=== PATIENT | female | born 1945 | race Caucasian/White ===

== ENCOUNTER → 2019-07-26 | Outpatient (CLI) | payer MEDICARE, OTHER ==
[~2019-07-26] MED LIST: ASPIRIN EC325 M1 PO; CALCIUM500 MG PO; EXCEDRIN CAPLE1 EACH PO; FISH OIL 500 M1 EAC1 PO; NEURONTIN 400M400 M2 PO; PILOCARPINE HCL5 M1 PO; POTASSIUM20 PO; PRILOSEC OTC20 MG PO
== END ==
LOC: M.MRI 15:00
DX: S83.241A Other tear of medial meniscus, current injury, right knee, initial encounter (principal); S83.282A Other tear of lateral meniscus, current injury, left knee, initial encounter; M17.11 Unilateral primary osteoarthritis, right knee; M17.12 Unilateral primary osteoarthritis, left knee; M22.42 Chondromalacia patellae, left knee; X58.XXXA Exposure to other specified factors, initial encounter; Y93.89 Activity, other specified; Y92.89 Other specified places as the place of occurrence of the external cause; Y99.8 Other external cause status

== ENCOUNTER → 2019-08-19 | Outpatient (CLI) | payer MEDICARE, OTHER ==
[~2019-08-19] VITALS: Ht 157.5 cm; Wt 82.1 kg
[2019-08-19 13:50] LABS: ABSOLUTE BASOPHILS 0.1 thou/uL (0.0-0.2); ABSOLUTE EOSINOPHILS 0.2 thou/uL (0.0-0.7); ABSOLUTE LYMPHOCYTES 3.3 thou/uL (0.8-5.3); ABSOLUTE MONOCYTES 0.9 thou/uL (0.0-1.2); ABSOLUTE NEUTROPHILS 10.1 thou/uL (1.6-8.1); BASOPHILS 0.7 %; EOSINOPHILS 1.5 %; HEMATOCRIT 39.2 % (37.0-47.0); HEMOGLOBIN 13.2 gm/dL (12.0-15.0); LYMPHOCYTES 22.4 %; MCH 27.6 pg (26.0-34.0); MCHC 33.6 g/dL (28.0-37.0); MONOCYTES 5.9 %; MPV 8.4 fl. (7.2-11.1); NUCLEATED RBCS 0 /100WBC; PLATELET COUNT* 240 thou/uL (150-400); POLYS 69.5 %; RBC 4.79 mil/uL (4.20-5.00); RDW-CV 14.7 % (10.5-14.5); WBC 14.6 thou/uL (4.0-11.0)
[2019-08-19 13:57] LABS: APTT 27.7 Seconds (25.0-31.3); PROTIME 10.7 Seconds (9.20-11.50)
[2019-08-19 14:01] LABS: ALBUMIN 3.4 g/dL (3.4-5.0); CALCIUM 9.4 mg/dL (8.5-10.1); CREATININE 0.7 mg/dL (0.6-1.3); POTASSIUM 3.7 mmol/L (3.5-5.1); TOTAL BILIRUBIN 0.3 mg/dL (<0.1-1.0); TOTAL PROTEIN 7.7 g/dL (6.4-8.2)
--- NOTE | 2019-08-19 14:15 | EKG ---
[place] [address] ELECTROCARDIOGRAM REPORT Name: MAO LAM Room: [facility]#: [id number] Admission: Attend Phys: Ruben Dudley DO Discharge: Date of : 45 Date of Service: 08/19/19 1352 Report #: [id number] THIS REPORT FOR: //name// [facility] Test Date: 2019-08-19 Test Time: 13:52:10 Pat Name: MAO LAM Department: Room: Gender: [employer] Director: : 1945 Requested By: Ruben Dudley Order Number: [id number] Arlyn MD: Benjamin Elkins Measurements Intervals [place] Rate: 103 P: 59 [place]: 124 QRS: 55 QRSD: 95 T: 45 QT: 326 QTc: 427 Interpretive Statements Sinus tachycardia Abnormal inferior Q waves No previous ECG available for comparison Electronically Signed On 08-19-2019 14:13:51 CDT by Benjamin Elkins [email or web address] <ELECTRONICALLY SIGNED> By: Benjamin Elkins MD, [facility] 08/19/19 1413 1352 1352 Benjamin Elkins MD, FACC /EPI
[2019-08-19 16:00] LABS: ESR (SEDRATE) 36 mm/hr (0-30)
[2019-08-20 02:07] LABS: GLYCOHEMOGLOBIN (HGB A1C) 5.3 % (4.8-5.6)
== END ==
LOC: M.PRE → M.LAB 08:00 → M.PRE 08-30 08:49 → EDSTATUS 08-30 15:15
PROVIDERS: Orthopaedic Surgery
DX: Z01.818 Encounter for other preprocedural examination (principal); M17.11 Unilateral primary osteoarthritis, right knee; Z96.651 Presence of right artificial knee joint

== ENCOUNTER 2019-11-08 07:27 | Inpatient (IN) | payer MEDICARE, OTHER ==
[2019-10-21 10:10] LABS: ABSOLUTE BASOPHILS 0.1 thou/uL (0.0-0.2); ABSOLUTE EOSINOPHILS 0.3 thou/uL (0.0-0.7); ABSOLUTE LYMPHOCYTES 2.8 thou/uL (0.8-5.3); ABSOLUTE MONOCYTES 0.5 thou/uL (0.0-1.2); ABSOLUTE NEUTROPHILS 5.4 thou/uL (1.6-8.1); BASOPHILS 0.9 %; EOSINOPHILS 3.1 %; HEMATOCRIT 41.3 % (37.0-47.0); HEMOGLOBIN 13.8 gm/dL (12.0-15.0); LYMPHOCYTES 30.7 %; MCH 27.7 pg (26.0-34.0); MCHC 33.5 g/dL (28.0-37.0); MCV 82.8 fL (80.0-100.0); MONOCYTES 5.3 %; MPV 8.7 fl. (7.2-11.1); NUCLEATED RBCS 0 /100WBC; PLATELET COUNT* 203 thou/uL (150-400); RBC 4.99 mil/uL (4.20-5.00); RDW-CV 14.9 % (10.5-14.5)
[2019-10-21 10:23] LABS: ALBUMIN 3.6 g/dL (3.4-5.0); CALCIUM 9.3 mg/dL (8.5-10.1); CREATININE 0.8 mg/dL (0.6-1.3); POTASSIUM 3.8 mmol/L (3.5-5.1); TOTAL BILIRUBIN 0.3 mg/dL (<0.1-1.0); TOTAL PROTEIN 7.7 g/dL (6.4-8.2)
[2019-10-21 10:50] LABS: APTT 26.6 Seconds (25.0-31.3); PROTIME 10.7 Seconds (9.20-11.50)
[2019-10-21 11:13] LABS: ESR (SEDRATE) 27 mm/hr (0-30)
[~2019-11-08] VITALS: Ht 157.5 cm; Wt 82.1 kg
[2019-11-08 09:00] VITALS: BP 147/73
[2019-11-08 10:30] VITALS: BP 122/62
--- NOTE | 2019-11-08 13:08 | NUR ---
PATIENT ARRIVED TO UNIT FROM PACU AT 1250. ALERT AND ORIENTED X 4. VITAL SIGNS STABLE ON 2L O2 NC. RESTING COMFORTABLY. ORIENTED PATIENT TO ROOM. FALL PRECAUTIONS IN PLACE AND BED ALARM ON. CALL LIGHT WITHIN REACH. NURSING WILL CONTINUE TO MONITOR.
[2019-11-08 16:00] VITALS: BP 120/70
--- NOTE | 2019-11-08 16:56 | NUR ---
PATIENT ALERT AND ORIENTED X 4. VITAL SIGNS STABLE ON 2L O2 NASAL CANULA. AFEBRILE. UP TO BEDSIDE COMODE WITH ASSIST OF ONE. IV PATENT AND FLUIDS INFUSING PER MAR. DENIES PAIN AND NAUSEA AT THIS TIME. THIGH HIGH TEDS AND SCD'S IN PLACE BILATERALLY. DRESSING TO RIGHT KNEE CLEAN, DRY, AND INTACT. FALL PRECAUTIONS IN PLACE AND BED ALARM ON. HOURLY ROUNDS MAINTAINED SINCE ARRIVING TO UNIT. CALL LIGHT WITHIN REACH. NURSING WILL CONTINUE TO MONITOR.
[2019-11-08 20:02] VITALS: BP 106/59
[2019-11-09 00:45] VITALS: BP 147/54
[2019-11-09 03:57] VITALS: BP 125/58
--- NOTE | 2019-11-09 05:03 | NUR ---
ASSUMED CARE OF PT 11/08/19 AT APPROX 1915. PT A&OX4, ON 2L NC, VSS, ON-Q PUMP IN PLACE. PAIN MEDS REQUESTED AND GIVEN ORDERED. PT VOIDING. ASSESSMENTS AND HOURLY ROUNDINGS COMPLETE, WILL CONTINUE TO MONITOR.
[2019-11-09 08:08] VITALS: BP 135/44
[2019-11-09 09:11] LABS: HEMATOCRIT 32.9 % (37.0-47.0)
--- NOTE | 2019-11-09 11:46 | NUR ---
PT PULLED OUT ON QUE MEDICATION PUMP.
--- NOTE | 2019-11-09 13:00 | NUR ---
SPOKE WITH PT.,WHO WAS ALERT AND ORIENTED. PLANS TO GO HOME TOMORROW. ACCIDENTLY PULLED PAIN PUMP OUT TODAY. WANTS TO MAKE SURE SHE HAS GOOD PAIN CONTROL BEFORE DISCHARGE. HAS A WALKER AT HOME TO USE. WILL BE WITH HER AT HOME 23/12. SHE PLANS TO DO OUTPT.THERAPY AT [facility] IT IS BY [facility] BUT NO AFFILIATED WITH [facility]. SHE USES [facility]. WOULD LIKE TO BE READY TO DISCHARGE BY ABOUT 1:00 TOMORROW SO THEY CAN GET TO [facility] TO GET PRESCRIPTIONS BEFORE THEY CLOSE. CM WILL CALL OR FAX IN PRESCRIPTIONS TO [facility].
[2019-11-09 16:00] VITALS: BP 152/66
[2019-11-09 20:50] VITALS: BP 147/75
[2019-11-10 04:04] LABS: HEMATOCRIT 30.3 % (37.0-47.0)
--- NOTE | 2019-11-10 05:55 | NUR ---
PATIENT HAS ISSUES WITH PAIN CONTROL. RECEIVED DILAUDID AT 2030 AND OXYCODONE 0600. SHE HAD SOME ISSUES GETTING OFF THE COMMODE AND BACK INTO BED BECAUSE OF HER KNEE. SHE IS ASSIST X2 AT THIS TIME. MERY CALIX IN PLACE. PLAN IS TO MANAGE PAIN AND WORK WITH THERAPY. WILL CONTINUE TO MONITOR.
[2019-11-10 08:10] VITALS: BP 131/55
[2019-11-10 09:49] VITALS: BP 131/55
--- NOTE | 2019-11-10 10:03 | NUR ---
PT.WANTING TO DISCHARGE TODAY. CM FAXED PRESCRIPTIONS TO THE [facility] [phone]. SPOKE WITH SEMAJ. SHE SAID THEY DO NOT CARRY OXYCODONE SO PT.WILL NEED TO OBTAIN AT AN OUTSIDE PHARMACY. PT.WANTS TO DO OUTPT.THERAPY AT [facility]. SPOKE WITH MAKE UP MAN THERE AND FAXED FACE SHEET AND ORDERS TO [phone]. THEY WILL CALL PT.TO SET UP THERAPY APPTS. INFORMED HER PT.IS GOING HOME TODAY. PT.INFORMED OF ABOVE.
[2019-11-10 15:40] LABS: URINE BILIRUBIN NEGATIVE (Negative); URINE BLOOD TRACE (Negative); URINE CLARITY CLEAR; URINE COLOR YELLOW; URINE GLUCOSE-RANDOM NEGATIVE (Negative); URINE KETONES TRACE (Negative); URINE LEUKOCYTES-REFLEX NEGATIVE (Negative); URINE NITRITE-REFLEX NEGATIVE (Negative); URINE PROTEIN NEGATIVE (Negative); URINE SPECIFIC GRAVITY 1.025 (1.005-1.030); URINE UROBILINOGEN 0.2 E.U./dl (0.2-1.0)
[2019-11-10 15:45] LABS: BE -1.4 mmol/L (-2 to +3); PCO2 34.7 mmHg (35.0-45.0); PO2 65.9 mmHg (75.0-100.0); pH 7.429 (7.340-7.450)
[2019-11-10 16:00] VITALS: BP 143/64
--- NOTE | 2019-11-10 17:11 | NUR ---
PT A&Ox4, HAS BEEN LETHARGIC AT TIMES DURING SHIFT. DR SELBY. DID POOR WITH BOTH THERAPIES TODAY. OXY IR GIVEN FOR PAIN. PT EATING MINIMAL OF MEALS. SPOKE WITH ORTHO RESIDENT, NEW MEDS ORDERED. DRESSING C/D/I. ICE PACK IN PLACE. FALL PRECAUTIONS IN PLACE. CALL LIGHT WITHIN REACH. WILL CONTINUE TO MONITOR.
[2019-11-10 21:24] VITALS: BP 110/50
--- NOTE | 2019-11-11 04:49 | NUR ---
PAIN WELL MANAGED. SHE WAS ABLE TO SLEEP WELL THROUGH THE NIGHT. STILL HAVING SOME ISSUES WITH MOBILITY, SHE WAS NOT DOING WELL GETTING UP TO RESTROOM SO WE USED A BEDPAN. ALERT AND ORIENTED AND ON ROOM AIR. STILL NEEDS TO WORK WITH THERAPY ON MOBILITY. WILL CONTINUE TO MONITOR.
[2019-11-11 08:02] VITALS: BP 149/62
--- NOTE | 2019-11-11 14:46 | NUR ---
ASSUMED CARE OF PT AROUND 0730 THIS AM. REFER TO ASSESSMENT. PT ALERT THIS SHIFT AND PARTICIPATING WITH PHYSICAL THERAPY. NOT READY FOR DC HOME. POSSIBLE PT WILL REQUIRE REHAB/ SNF PLACEMENT. NOTED THAT PT WAS MAX ASSIST X2 THIS AM FOR TRANSFERS TO COMMODE. PT IS NOW ONLY REQUIRING ASSIST X1 FOR TRANSFERS TO COMMODE. NO OTHER CONCERNS AT THIS TIME. CLWR. WCTM.
--- NOTE | 2019-11-11 15:30 | NUR ---
PT.UP IN RECLINER. CM DISCUSSED DISCHARGE PLANNING WITH PT. SHE FELT SHE DID MUCH BETTER TODAY. FEELS HER PAIN MEDICATION WAS TOO STRONG FOR HER YESTERDAY. HER AND DO NOT WANT HER TO HAVE TO GO TO SNF . SHE IS HOPEFUL SHE CAN GO HOME TOMORROW WITH HOME HEALTH.
[2019-11-11 19:45] VITALS: BP 133/50
[2019-11-12] VITALS (7 sets, daily range): BP systolic 125–139; BP diastolic 47–60
--- NOTE | 2019-11-12 02:53 | NUR ---
PATIENT ALERT AND ORIENTED X 4 THROUGHOUT THE SHIFT AND RESTING QUIETLY ON HOURLY ROUNDS. UP IN RECLINER UNTIL 2200. TRANSFERING WITH MIN ASSIST OF ONE. NEEDS REMINDING FOR SAFE TECHNIQUE. TENDS TO LEAN ON WALKER IN BENT POSTION INSTEAD OF STANDING UP STRAIGHT. ALSO, NEEDS ASSIST GETTING SURGICAL LEG INTO BED. MEDICATED WITH SCHEDULED TYLENOL PER ORDER AND PRN OXY X 1 OF THIS WRITING. PATIENT REPORTS EFFECT PAIN MANAGEMENT. VITAL SIGNS STABLE ON ROOM AIR. DRESSING RIGHT KNEE CLEAN AND DRY. NEW MARV[place] HOSE APPLIED AT HS. SCD'S IN PLACE WELL. IS ENCOURAGED. ICE PACK TO INCISION PROVIDED. CONTINUE TO MONITOR.
[2019-11-12 03:55] LABS: MCH 28.4 pg (26.0-34.0); MCHC 34.8 g/dL (28.0-37.0); MCV 81.7 fL (80.0-100.0); MPV 8.9 fl. (7.2-11.1); RBC 3.18 mil/uL (4.20-5.00); RDW-CV 14.1 % (10.5-14.5); WBC 12.7 thou/uL (4.0-11.0)
[2019-11-12 04:13] LABS: ALBUMIN 2.2 g/dL (3.4-5.0); CALCIUM 8.4 mg/dL (8.5-10.1); CREATININE 0.8 mg/dL (0.6-1.3); MAGNESIUM 1.8 mg/dL (1.8-2.4); POTASSIUM 3.4 mmol/L (3.5-5.1); TOTAL BILIRUBIN 0.4 mg/dL (<0.1-1.0)
--- NOTE | 2019-11-12 05:58 | NUR ---
NO CHANGE FROM PREVIOUS ENTRY.
[2019-11-12] MEDS ORDERED: LIDOPATCH1 EACH TOP (11:13)
[2019-11-12] MEDS ORDERED: TRAMADOL 50 MG50 MG PO (11:13)
[2019-11-12] MEDS ORDERED: ELIQUIS5 MG PO (11:13)
[2019-11-12] MEDS ORDERED: FERREX 150 PLU1 EAC1 PO (11:13)
[2019-11-12] MEDS ORDERED: OXYCODONE HCL 55 MG PO (11:13)
--- NOTE | 2019-11-12 13:21 | NUR ---
PT.DID WELL IN THERAPY TODAY. WILL BE DISCHARGED WITH OUTPT.THERAPY. $0 COPAY ON ELIQUIS AT HER PHARMACY. RE FAXED OUTPT.TO PT ORDERS,FACE SHEET AND OP REPORT TO CORRECT [facility] LOCATION IN [facility]-[phone]. SHE SAID WAS ON THE WAY TO PICK HER UP. IT WILL TAKE HIM ABOUT 1 1/2 HRS TO GET FROM [place].
--- NOTE | 2019-11-12 14:53 | NUR ---
PT GIVEN DISCHARGE INFORMATION, CARE NOTES, AND PRESCRIOPTIONS. IV REMOVED. PT BELONGINGS GATHERED. PT LEFT VIA WHEELCHAIR WITH NURSING STAFF TO HOME WITH HOME HEALTH. FALL RISK PRECAUTIONS IN PLACE. HOURLY ROUNDING COMPLETED.
--- NOTE | 2019-11-15 15:25 | OP ---
[facility] [address] [place] [address] OPERATIVE REPORT Name: MAO LAM Room: [address] IN M.R.#: [id number] Admission: 11/08/19 Attend Phys: Madelin Agustin Discharge: 11/12/19 Date of : 45 Report #: [id number] THIS REPORT FOR: //name// cc: Brian Brooke John R. DO ~ THIS REPORT FOR: //name// CC: Brian Diaz DICTATED BY: Keven Alcala DO DATE OF SERVICE: 11/08/2019 PREOPERATIVE DIAGNOSIS: Right knee degenerative joint disease. POSTOPERATIVE DIAGNOSIS: Right knee degenerative joint disease. PROCEDURE: Right total knee arthroplasty. IMPLANTS: [employer] Journey 2 total knee system with the following components: 1. Size 4 right femur. 2. Size 4 tibial baseplate. 3. 29 mm oval patellar button. 4. A size 11 posterior stabilized poly, one bag of Biomet cement. SURGEON: Ruben Dudley DO FEEDER ASSOCIATE: Keven Alcala DO and Asim Sainz DO ANESTHESIA: General and adductor canal block. FLUIDS: Crystalloid per Anesthesia. ESTIMATED BLOOD LOSS: 100 mL. COMPLICATIONS: None. SPECIMENS: None. COMPLICATIONS: None. CONDITION: Stable to PACU. DISPOSITION: Recovery in PACU and was transferred to the floor. [address] [address] OPERATIVE REPORT Name: MAO LAM Room: [address]#: [id number] Admission: 11/08/19 Attend Phys: Madelin Agustin Discharge: 11/12/19 Date of : 45 Report #: [id number] ANTIBIOTICS: 2 grams Ancef IV preoperatively. TOURNIQUET: None. INDICATIONS FOR PROCEDURE: The patient is a very pleasant 73-year-old female who presented to our clinic with longstanding right knee pain. She failed conservative management including oral medications, activity modifications and continued to have pain that affected her activities of daily living. We discussed a total knee arthroplasty. The risks, benefits, alternatives and possible complications including but not limited to DVT, PE, , infection, need for repeat surgery, pain, stiffness, amputation, rhabdomyolysis, possible anesthesia complications and others were reviewed. She voices understanding and agreeable to proceed. INTRAOPERATIVE FINDINGS: Upon dissection down to the knee, there was a normal-appearing synovial fluid. There was hypertrophic synovium and tricompartmental degenerative changes with osteophytes and eburnation. DESCRIPTION OF PROCEDURE: The patient was met in the preoperative area. The correct site was marked. Consent was obtained. She was transferred to the operative suite and placed supine on the operative table. All bony prominences were well padded and she was secured to the table. She was given the benefit of general anesthesia. A nonsterile tourniquet that was well padded was applied to the right upper thigh, but was not used for the case. The right leg was then prepped and draped in the normal sterile fashion. A timeout was performed to identify the correct patient, procedure, operative site, and antibiotic administration. All in the room were in agreement. A standard anterior midline incision was made down to the level of the capsule. A new knife was then used to create a medial parapatellar arthrotomy. Dissection was carried down to the level of bone. The patella was then everted in the usual fashion. We then used the premade TELA [employer] distal femoral cutting block. This was pinned in place and the distal femoral cut was then made. We then turned our attention to the tibia where the premade proximal tibial guide was pinned in place. The proximal tibia cut was then made. A great care was taken to protect all blood vessels, nerves and ligaments in the field. We then turned our attention to the 5-in-1 cutting block. This was pinned in place and the anterior, posterior and chamfer cuts were then made. A 10 mm block was then placed, which showed good ligamentous balance with varus and valgus stress. The menisci and osteophytes and residual bone were excised in the usual fashion. Trial components were placed. With the correct amount of rotation. The box was then prepared using the reamer and punch. Excess bone was then removed. All trial components were then placed. Flexion and extension gaps were found to be symmetric and stable throughout. There was no mid flexion or flexion instability. We then turned our attention to repairing the patella. The patellar reamer was used and the patella was sized to the appropriate size. The [place] [address] OPERATIVE REPORT Name: LAMMAO Room: [address] [place] .R.#: [id number] Admission: 11/08/19 Attend Phys: Madelin Agustin Discharge: 11/12/19 Date of : 45 Report #: [id number] components were then removed. We then reamed and punched the tibia through the trial tibial baseplate. All excess bone was then removed. The knee was then thoroughly irrigated. The cement was mixed on the back table and placed on the backside of the final components. Cemented was also placed on the bone ends and pressed into the interstices. Final components were then placed. Excess cement was removed. She was found to have good stability with a size 11 poly. The final poly was placed. An audible and palpable click ensured proper seating of the poly. The knee was then placed in 90 degrees of flexion. One gram of vancomycin powder was placed within the capsule with some extracapsular. The capsule was reapproximated with #1 Vicryl suture in interrupted [id number] fashion followed by a running #1 Stratafix. The subcutaneous tissues were reapproximated with 2-0 Monocryl suture in a simple interrupted and inverted fashion. Prior to closure, we did use a pain cocktail injected about the knee. After closure with 2-0 Monocryl sutures, this was followed by a running 3-0 Stratafix. This was followed by Dermabond skin glue and a sterile Mepilex dressing. All instrument, needle and sponge counts were correct x 2 at the end of the case. The patient was extubated and anesthesia was reversed by the anesthesia team. She was transferred to the PACU in stable condition. There were no obvious complications. ATTESTATION: Dr. Dudley was present and scrubbed throughout all critical aspects of the case. PQRS requirements, the patient received 2 grams of Ancef within 30 minutes prior to the surgery and will receive 2 additional doses postoperatively. DVT prophylaxis will be started and will include both mechanical and chemical. <ELECTRONICALLY SIGNED> By: Ruben Dudley, 11/15/19 1525 1737 DO gerda Pandey
== END 2019-11-12 14:54 | disposition home health service (06) | DRG 470 ==
LOC: M.TBA 07:27 → M.PRE 07:32 → M.TBA 11:39 → M.ORTHSURG 11:39
PROVIDERS: Internal Medicine; Orthopaedic Surgery; ADMIT Internal Medicine; ATTEND Internal Medicine
PROC: 0SRC0J9 Replacement of Right Knee Joint with Synthetic Substitute, Cemented, Open Approach (ICD-10-PCS; principal; 2019-11-08)
DX: M17.11 Unilateral primary osteoarthritis, right knee (principal); K21.9 Gastro-esophageal reflux disease without esophagitis; Z88.1 Allergy status to other antibiotic agents; Z88.5 Allergy status to narcotic agent; Z90.710 Acquired absence of both cervix and uterus; Z90.89 Acquired absence of other organs; Z90.49 Acquired absence of other specified parts of digestive tract; Z98.49 Cataract extraction status, unspecified eye; Z86.73 Personal history of transient ischemic attack (TIA), and cerebral infarction without residual deficits